=== PATIENT | male | born 1985 | race Caucasian/White ===

== ENCOUNTER 2016-12-22 05:38 | Outpatient (CLI) | payer MEDICARE, MEDICAID ==
[~2016-12-22 05:38] MED LIST: ACET325T49 PO; CARB300C2 PO; CLON0.5T3 PO; DIVA500T PO; DOCU100T2 PO; IBUP200T48 PO; LORA10TA7 PO; PROP120C36 PO; PROP20TA23 PO; QTP200T PO; QUET200T2 PO; QUET300T3 PO; QUET50TA49 PO; [UNRECOGNIZED DRUG - CODE] PO
--- OUTSIDE RECORDS SUMMARY | 2016-12-22 05:44 | XMS REPORT | Clinical Summary ---
Author Author Admin, ABBE Organization 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 Active Jan Renteria MD Unspecified disturbance of conduct ACUTE PHARYNGITIS 462 Resolved Jan Renteria MD Acute pharyngitis PICA 307.52 Resolved Jan Renteria MD Pica Seizure disorder 780.39 Active Jan Renteria MD Other convulsions Leukopenia, chronic 288.50 Active Jan Renteria MD Leukocytopenia, unspecified Health screening V70.0 Active Jan Renteria MD Routine general medical examination at a health care facility NOCTURNAL ENURESIS 788.36 Resolved Jan Renteria MD Nocturnal enuresis ELEVATED BP 796.2 Inactive Jan Renteria MD Elevated blood pressure reading without diagnosis of hypertension Elevated blood pressure without diagnosis of hypertension 796.2 Active Jan Renteria MD Elevated blood pressure reading without diagnosis of hypertension Pica 307.52 Active Jan Renteria MD Pica Impulse control disorder 312.30 Active Qiana FELIX Impulse control disorder, unspecified ACUTE PHARYNGITIS ICD-462 Inactive Jan Renteria MD PICA ICD-307.52 Inactive Jan Renteria MD NOCTURNAL ENURESIS ICD-788.36 Inactive Jan Renteria MD Medication List Medication Instructions Start Date Stop Date Generic Name NDC Status Provider Patient Instruction PROPRANOLOL HCL CR 60 MG [id number] 2 po daily PROPRANOLOL HCL 66365267129 Active Jan Renteria MD Active CLONAZEPAM 0.5 MG TABS 1 tablet by mouth 3 times daily CLONAZEPAM 06881441887 Active Jan Renteria MD Active COLACE 100 MG CAP 1 po qd DOCUSATE SODIUM 04001757783 Active Radha Heath MD PhD Active DIVALPROEX SODIUM 500 MG TBEC 1 po TID DIVALPROEX SODIUM 31287400089 Active Jan Renteria MD Active ANTACID EXTRA STRENGTH 750 MG CHEW One to Two Tablets Every 6.5 hours as needed for heartburn CALCIUM CARBONATE ANTACID 74452704023 Active Jan Renteria MD Active HYDROCORTISONE ACETATE 1 % CREA apply sparingly to affected areas twice a day as needed. HYDROCORTISONE ACETATE 86214355725 Active Qiana FELIX Active CEFTIN 500 MG TAB 1 po bid 10 day CEFUROXIME AXETIL 18385069741 No Longer Active Jan Renteria MD Active SEROQUEL XR 300 MG [id number] 1 po every evening QUETIAPINE FUMARATE 36682253152 Active Chintan Zamarripa DO Active SEROQUEL XR 200 MG [id number] 1 po daily QUETIAPINE FUMARATE 66251036833 Active Chintan Zamarripa DO Active GNP IBUPROFEN 200 MG TABS 3 tabs every 8 hours with food as needed IBUPROFEN 44368192114 Active Jan Renteria MD Active CARBAMAZEPINE 300 MG [id number] 2 caps BID CARBAMAZEPINE 79695640828 Active Chintan Zamarripa DO Active ACETAMINOPHEN 325 MG TABS 2 tabs every 6 hours prn fever/pain ACETAMINOPHEN 83649142637 Active Jan Renteria MD Active LORATADINE 10 MG TABS 1 tablet by mouth daily PRN Congestion LORATADINE 83346934726 Active Jan Renteria MD Active CEFTIN 500 MG TAB 1 po bid 10 day CEFTIN 500 MG TAB 234881 CEFUROXIME AXETIL Inactive Vital Signs Date Name Value Unit Range Description blood pressure, diastolic - 8462-4 72 mm[Hg] BP lanza blood pressure, systolic - 8480-6 121 mm[Hg] BP sys pulse rate E&M - 8867-4 68 /min Heart rate temperature E&M 98.1 [degF] Body temperature weight E&M - 3141-9 159 [lb_av] Weight Measured blood pressure, diastolic - 8462-4 83 mm[Hg] BP lanza blood pressure, systolic - 8480-6 121 mm[Hg] BP sys pulse rate E&M - 8867-4 77 /min Heart rate temperature E&M 97.2 [degF] Body temperature weight E&M - 3141-9 166.4 [lb_av] Weight Measured blood pressure, diastolic - 8462-4 83 mm[Hg] BP lanza blood pressure, systolic - 8480-6 122 mm[Hg] BP sys pulse rate E&M - 8867-4 80 /min Heart rate temperature E&M 97.6 [degF] Body temperature weight E&M - 3141-9 154.0 [lb_av] Weight Measured blood pressure, diastolic - 8462-4 81 mm[Hg] BP lanza blood pressure, systolic - 8480-6 136 mm[Hg] BP sys pulse rate E&M - 8867-4 67 /min Heart rate temperature E&M 96.0 [degF] Body temperature weight E&M - 3141-9 152 [lb_av] Weight Measured Diagnostic Results Date Name Value Unit Range Description Lab Report: CARBAMAZEPINE, TOTAL, VALPROIC ACID - Toxicology carbamazepine level, serum 9.6 ug/mL 4.0-12.0 valproic acid, serum 90.3 ug/mL 50.0-100.0 Lab Report: CBC W/DIFF, Comp. Metabolic Panel - Chemistry sodium, serum 133 mmol/L 909-844 9816/12/08 potassium, serum 4.7 mmol/L 3.5-5.2 chloride, serum 97 mmol/L 98-107 carbon dioxide, venous blood 31.6 mmol/L 21.0-32.0 blood glucose 93 mg/dL 65-110 urea nitrogen, blood 10 mg/dL 7-18 creatinine, serum 0.90 mg/dL 0.60-1.30 alanine aminotransferase (SGPT), serum 18 U/L - aspartate aminotransferase (SGOT), serum 13 U/L 15-37 calcium, serum 9.8 mg/dL 8.5-10.1 bilirubin, serum, total 0.30 mg/dL 0.00-1.00 sodium, serum 131 mmol/L 988-014 9841/10/20 potassium, serum 4.7 mmol/L 3.5-5.2 chloride, serum 94 mmol/L 98-107 carbon dioxide, venous blood 34.2 mmol/L 21.0-32.0 blood glucose 90 mg/dL 65-110 urea nitrogen, blood 6 mg/dL 7-18 creatinine, serum 0.80 mg/dL 0.60-1.30 alanine aminotransferase (SGPT), serum 19 U/L -78 aspartate aminotransferase (SGOT), serum 14 U/L 15-37 alkaline phosphatase, serum 66 U/L 50-136 calcium, serum 9.8 mg/dL 8.5-10.1 bilirubin, serum, total 0.30 mg/dL 0.00-1.00 Lab Report: CBC W/DIFF, Comp. Metabolic Panel - Hematology leukocyte count, blood 3.4 10^3/MM^3 10*3/mm3 4.6-10.2 neutrophils as percent of blood leukocytes 43.2 % 42.2-75.2 monocytes as percent of blood leukocytes 12.9 % 1.7-9.3 lymphocytes as percent of blood leukocytes 42.7 % 20.5-51.1 erythrocyte (RBC) count 4.40 10^6/MM^3 10*6/mm3 4.69-6.13 hemoglobin, blood 13.8 g/dL 13.5-17.5 hematocrit, blood 40.8 % 41.0-53.0 mean corpuscular volume, RBC 93 fL 80-97 mean corpuscular hemoglobin, RBC 31.4 pg 27.0-31.2 mean corpuscular hemoglobin concentration, RBC 33.9 G/DL % 31.8- 35.4 red blood cell distribution width 14.0 % 11.6-14.8 platelet count 254 10^3/MM^3 10*3/mm3 360-125 3586/12/08 leukocyte count, blood 2.5 10^3/MM^3 10*3/mm3 4.6-10.2 neutrophils as percent of blood leukocytes 51.6 % 42.2-75.2 monocytes as percent of blood leukocytes 8.7 % 1.7-9.3 lymphocytes as percent of blood leukocytes 36.8 % 20.5-51.1 erythrocyte (RBC) count 4.46 10^6/MM^3 10*6/mm3 4.69-6.13 hemoglobin, blood 13.9 g/dL 13.5-17.5 hematocrit, blood 41.4 % 41.0-53.0 mean corpuscular volume, RBC 93 fL 80-97 mean corpuscular hemoglobin, RBC 31.1 pg 27.0-31.2 mean corpuscular hemoglobin concentration, RBC 33.5 G/DL % 31.8- 35.4 red blood cell distribution width 14.9 % 11.6-14.8 platelet count 238 10^3/MM^3 10*3/mm3 142-424 Lab Report: CBC W/DIFF, Comp. Metabolic Panel, Lipid Panel - Chemistry sodium, serum 133 mmol/L 318-934 5302/05/04 potassium, serum 4.5 mmol/L 3.5-5.2 chloride, serum 98 mmol/L 98-107 carbon dioxide, venous blood 28.5 mmol/L 21.0-32.0 blood glucose 91 mg/dL 65-110 urea nitrogen, blood 13 mg/dL 7-18 creatinine, serum 0.80 mg/dL 0.60-1.30 alanine aminotransferase (SGPT), serum 32 U/L 12-78 aspartate aminotransferase (SGOT), serum 17 U/L 15-37 calcium, serum 9.1 mg/dL 8.5-10.1 bilirubin, serum, total 0.30 mg/dL 0.00-1.00 cholesterol, serum 195 mg/dL 580-780 3433/05/04 triglyceride, serum, fasting 85 mg/dL 30-200 HDL cholesterol, serum 71 mg/dL 32-96 LDL cholesterol, serum 107 mg/dL 0-130 Lab Report: CBC W/DIFF, Comp. Metabolic Panel, Lipid Panel - Hematology leukocyte count, blood 4.0 10^3/MM^3 10*3/mm3 4.6-10.2 neutrophils as percent of blood leukocytes 73.5 % 42.2-75.2 monocytes as percent of blood leukocytes 9.0 % 1.7-9.3 lymphocytes as percent of blood leukocytes 14.8 % 20.5-51.1 erythrocyte (RBC) count 4.60 10^6/MM^3 10*6/mm3 4.69-6.13 hemoglobin, blood 14.1 g/dL 13.5-17.5 hematocrit, blood 41.7 % 41.0-53.0 mean corpuscular volume, RBC 91 fL 80-97 mean corpuscular hemoglobin, RBC 30.7 pg 27.0-31.2 mean corpuscular hemoglobin concentration, RBC 33.9 G/DL % 31.8- 35.4 red blood cell distribution width 13.8 % 11.6-14.8 platelet count 286 10^3/MM^3 10*3/mm3 142-424 Lab Report: CBC, Comp. Metabolic Panel, Lipid Panel - Chemistry sodium, serum 129 mmol/L 139-931 1367/06/29 potassium, serum 4.5 mmol/L 3.5-5.2 chloride, serum 93 mmol/L 98-107 carbon dioxide, venous blood 29.2 mmol/L 21.0-32.0 blood glucose 89 mg/dL 65-110 urea nitrogen, blood 8 mg/dL 7-18 creatinine, serum 0.60 mg/dL 0.60-1.30 alanine aminotransferase (SGPT), serum 28 U/L 12-78 aspartate aminotransferase (SGOT), serum 17 U/L 15-37 calcium, serum 8.9 mg/dL 8.5-10.1 bilirubin, serum, total 0.30 mg/dL 0.00-1.00 cholesterol, serum 212 mg/dL 887-846 2327/06/29 triglyceride, serum, fasting 99 mg/dL 30-200 HDL cholesterol, serum 45 mg/dL 32-96 LDL cholesterol, serum 147 mg/dL 0-130 Lab Report: CBC, Comp. Metabolic Panel, Lipid Panel - Hematology leukocyte count, blood 3.4 10^3/MM^3 10*3/mm3 4.6-10.2 erythrocyte (RBC) count 4.57 10^6/MM^3 10*6/mm3 4.69-6.13 hemoglobin, blood 13.8 g/dL 13.5-17.5 hematocrit, blood 40.0 % 41.0-53.0 mean corpuscular volume, RBC 88 fL 80-97 mean corpuscular hemoglobin, RBC 30.2 pg 27.0-31.2 mean corpuscular hemoglobin concentration, RBC 34.4 G/DL % 31.8- 35.4 red blood cell distribution width 13.4 % 11.6-14.8 platelet count 310 10^3/MM^3 10*3/mm3 142-424 Lab Report: VALPROIC ACID, CARBAMAZEPINE, TOTAL - Toxicology valproic acid, serum 46.6 ug/mL 50.0-100.0 carbamazepine level, serum 8.3 ug/mL 4.0-12.0 Lab Report: VITAMIN B12/FOLATE, SERUM PANE, IRON AND TOTAL IRON BINDING ... - Toxicology Lead Serum <3 mcg/dL ug/dL <10 Encounters Code Encounter Date Provider Facility CPT-51734 Level 4 Est. Patient 13:56:20 CDT Jan Renteria MD [facility] CPT-94865 Level 3 Est. Patient 10:17:04 CENTER MEDICAL DIRECTOR Jan Renteria MD [facility] CPT-33595 Level 3 Est. Patient 09:13:47 CENTER MEDICAL DIRECTOR Jan Renteria MD [facility] CPT-86058 Level 4 Est. Patient 10:50:58 CDT Jan Renteria MD [facility] CPT-38425 Level 4 Est. Patient 09:31:29 CDT Jan Renteria MD [facility] CPT-13841 Level 3 Est. Patient 09:37:08 CDT Jan Renteria MD [facility] CPT-81880 Level 3 Est. Patient 14:56:51 CDT Jan Renteria MD [facility] CPT-30670 Level 3 Est. Patient 18:39:11 CDT Chintan Zamarripa DO [facility] Procedures Code Procedure Name Date Entry Date Standard Description CPT-19486 Venipuncture Draw Fee 08:18:47 CDT CPT-38576 Abd single AP View 10:20:56 CENTER MEDICAL DIRECTOR CPT-19340 Abd single AP View 08:22:35 CENTER MEDICAL DIRECTOR CPT-45306 Abd single AP View 08:12:25 CENTER MEDICAL DIRECTOR CPT-64063 Abd single AP View 14:40:30 CENTER MEDICAL DIRECTOR CPT-38673 Abd compl w upright 09:20:36 CENTER MEDICAL DIRECTOR CPT-82852 Venipuncture Draw Fee 08:27:50 CDT CPT-31371 Venipuncture Draw Fee 08:08:26 CENTER MEDICAL DIRECTOR
[2016-12-22] MEDS ORDERED: PSEU120T18 PO (10:58)
[2016-12-22] MEDS ORDERED: OMEP20CA12 PO (10:58)
[2016-12-22] MEDS ORDERED: FLUT9.9S NSEACH (10:58)
[2016-12-22] MEDS ORDERED: OLAN20TA16 PO (10:58)
== END 2016-12-22 11:00 ==
LOC: PREOP 05:38
PROVIDERS: ATTEND Dentist General Practice
DX: Z01.818 Encounter for other preprocedural examination (principal); K02.9 Dental caries, unspecified

== ENCOUNTER 2016-12-29 10:56 | Day surgery (SDC) | payer MEDICARE, MEDICAID ==
--- NOTE | 2016-12-23 07:28 | HISTORY AND PHYSICAL ---
DICTATING PHYSICIAN: Dr. Tobin DATE OF ADMISSION: 12/29/[address] Baxter. History by [facility] coordinated, to have teeth surgery by Dr. Baxter the last one was over a year ago and did fine. MEDICATIONS NOW ON: 1. Tylenol. 2. Antacid chewable. 3. Tegretol 300 mg 2 capsules b.i.d. 4. Depakote 1500 mg. 5. Docusate sodium 100 mg. 6. Flonase. 7. Motrin. 8. Loratadine. 9. Nystatin. 10. Zyprexa 20 mg. 11. Omeprazole 20 mg. 12. Propranolol 120 mg. 13. Sudafed 120 mg. 14. Triamcinolone cream. The patient is mentally challenged and unable to give a history. PREVIOUS SURGERIES: Teeth. ALLERGIC TO MEDICATIONS: Denies. EYES, EARS, NOSE AND THROAT: Wears glasses. No history of problems. HEART: No history of heart problems or chest pain. LUNGS: No coughing, congestion. Appetite okay. KIDNEYS: Urinating good. PHYSICAL EXAMINATION: The patient is a white male, well-nourished, well-developed, in no acute respiratory distress at rest. VITAL SIGNS: Blood pressure 120/90, pulse 76. EARS: Not inflamed. EYES: No conjunctivitis or icterus. THROAT: Not inflamed. NECK: Thyroid not enlarged. No abnormal cervical lymphadenopathy noted. HEART: Regular rate and rhythm. LUNGS: Clear to auscultation. ABDOMEN: Soft. Liver and spleen nonpalpable. PLAN: The patient okay to have surgery. We will be on standby if has any problems. Job ID: [id number] Dictated Date: 12/22/2016 11:38:00 Bacteriology Technician Date: 12/22/2016 13:38:33/eloina
[~2016-12-29] VITALS: Ht 157.5 cm; Wt 83.0 kg
[~2016-12-29 10:56] MED LIST changes: +FLUT9.9S NSEACH; +OLAN20TA16 PO; +OMEP20CA12 PO; +PSEU120T18 PO
[2016-12-29] MEDS ORDERED: FAMOTIDINE 20MG/2ML IV (PEPCID) ONE (12:05)
[2016-12-29] MEDS ORDERED: MIDAZOLAM 2 MG/2 ML (VERSED) VIAL ONE (12:05)
[2016-12-29] MEDS ORDERED: ONDANSETRON 4 MG/2 ML (SDV) Z0FRAN ONE (12:05)
[2016-12-29] MEDS ORDERED: SEVOFLURANE (ULTANE) 15 ML INHAL SOLN ONE ×9 (12:06→14:55)
[2016-12-29] MEDS ORDERED: proPOfol 200 MG/20 ML (DIPRIVAN) VIAL IV ONE (12:06)
[2016-12-29] MEDS ORDERED: fentaNYL INJECTION 100 MCG/2 ML AMP ONE (12:06)
[2016-12-29] MEDS ORDERED: ROCURONIUM 50 MG/5 ML (ZEMURON) VIAL IV ONE (12:06)
[2016-12-29] MEDS ORDERED: LIDOCAINE PF 2% 10 ML (XYLOCAINE) AMP ONE (12:06)
[2016-12-29] MEDS ORDERED: LACTATED RINGERS 1,000 ML IV ONE ×2 (12:06→13:23)
[2016-12-29] MEDS ORDERED: LIDOCAINE JELLY 2% (XYLOCAINE) 5 ML TUBE ONE (12:10)
[2016-12-29] MEDS ORDERED: PHENYLEPHRINE 0.25% NASAL SPR (NEO-SYNEPHRINE) 15 ML NS ONE ×3 (12:23→13:45)
--- NOTE | 2016-12-29 12:25 | Progress Note-Pre Operative ---
Pre-Operative Progress Note H&P Reviewed The H&P was reviewed, patient examined and no changes noted. Date H&P Reviewed: Dec 29, 2016 Time H&P Reviewed: 12:24 Pre-Operative Diagnosis: dental caries NIEVES WATERS DDS Dec 29, 2016 12:25 pm
[2016-12-29] MEDS ORDERED: APAP 325 MG/10.15 ML LIQ (TYLENOL) UDC PO PRN (12:30)
[2016-12-29] MEDS ORDERED: APAP 325 MG/10.15 ML LIQ (TYLENOL) UDC PO SCH (12:45)
[2016-12-29] MEDS ORDERED: FAMOTIDINE 20MG/2ML IV (PEPCID) IV ONE (13:45)
[2016-12-29] MEDS ORDERED: LACTATED RINGERS 1,000 ML IV PRN (13:45)
[2016-12-29] MEDS ORDERED: MIDAZOLAM 2 MG/2 ML (VERSED) VIAL IV ONE (13:45)
[2016-12-29] MEDS ORDERED: ONDANSETRON 4 MG/2 ML (SDV) Z0FRAN IV ONE (13:45)
[2016-12-29] MEDS ORDERED: SUCCINYLCHOLINE INJ 100 MG/5 ML SYR ONE (15:14)
--- NOTE | 2016-12-29 15:21 | Progress Note-Post Operative ---
Post-Operative Progess Note Pre-Operative Diagnosis dental caries Post-Operative Diagnosis same Post-Op Procedure Note Date of Procedure: Dec 29, 2016 Name of Procedure: repair of carious teeth utilizing SSCrs, glass ionomer cement and Zirconia crowns and bridges NIEVES WATERS DDS Dec 29, 2016 3:21 pm
[2016-12-29 16:00] VITALS: BP 139/94
[2016-12-29 16:30] VITALS: BP 145/104
[2016-12-29 16:45] VITALS: BP 145/104
--- NOTE | 2016-12-30 14:40 | OPERATIVE REPORT ---
PROCEDURE PHYSICIAN: NIEVES WATERS DATE OF PROCEDURE: 12/29/2016 PREOPERATIVE DIAGNOSIS: Dental caries. POSTOPERATIVE DIAGNOSIS: Dental caries. OPERATION PERFORMED: Repair of numerous teeth utilizing stainless steel crowns, Zirconia crowns and bridges, glass ionomer cement and direct pulp therapy. PROCEDURE: The patient was treated on an outpatient basis and following proper sedation, he was taken to the operating room placed in the supine position upon the table. Anesthesia was induced, nasotracheal intubation accomplished and general anesthesia administered. A throat pack consisting of one, wet, 4 x 4 gauze sponge was placed in the oropharynx and maintained at all times throughout the procedure. Mouth opening was maintained at all times with simple digital pressure. No mechanical retractors of any kind were ever utilized. Caries was removed from teeth numbers 6 through 12, as well as 20, 21, 22 and 30 and a direct pulp cap therapy was utilized on tooth number 22 and then was repaired with glass ionomer cement. Stainless steel crowns were applied to teeth numbers 20, 21 and 30. Foundations were placed and teeth numbers 8, 11 and 30 and subsequently teeth numbers 6, 9, 11 and 12 were all prepared to receive Zirconia crowns. The patient tolerated this procedure quite nicely and following a thorough debridement of the oral cavity with a copious flow of water, adequate suction and compressed air, the throat pack was removed. The patient was extubated and taken to recovery in quite satisfactory condition. Job ID: [id number] Dictated Date: 12/30/2016 08:12:07 Advanced Manufacturing Vice President Date: 12/30/2016 14:34:08 / eloina LOYA
== END 2016-12-29 16:45 | disposition home or self-care (01) ==
LOC: SDC 10:56
PROVIDERS: ATTEND Dentist General Practice
DX: K02.9 Dental caries, unspecified (principal); F79 Unspecified intellectual disabilities
CPT/HCPCS: 87081

== ENCOUNTER 2020-07-09 05:35 | Outpatient (RCR) | payer MEDICARE, MEDICAID ==
[~2020-07-09 05:35] MED LIST changes: -OLAN20TA16 PO; +OLAN20TA34 PO; -OMEP20CA12 PO; +OMEP20CA18 PO; -PSEU120T18 PO; +[UNRECOGNIZED DRUG - CODE] PO
[2020-07-10] MEDS ORDERED: INDLA120 PO (11:29)
[2020-07-10] MEDS ORDERED: DOCU100C37 PO (11:29)
[2020-07-10] MEDS ORDERED: DIVA-76 PO ×2 (11:29)
[2020-07-10] MEDS ORDERED: CARB300C9 PO ×2 (11:29)
[2020-07-10] MEDS ORDERED: PRAV20TA3 PO (11:29)
== END 2020-07-10 12:05 | disposition home or self-care (01) ==
LOC: PREOP 05:35
PROVIDERS: ATTEND Dentist General Practice
DX: Z01.818 Encounter for other preprocedural examination (principal); K02.9 Dental caries, unspecified

== ENCOUNTER 2020-07-16 10:39 | Day surgery (SDC) | payer MEDICARE, MEDICAID ==
[~2020-07-16] VITALS: Ht 154.9 cm; Wt 88.3 kg
[~2020-07-16 10:39] MED LIST changes: +CARB300C9 PO; +DIVA-76 PO; +DOCU100C37 PO; +INDLA120 PO; +PHENYLEPHRINE 0.25% NASAL SPR (NEO-SYNEPHRINE) 15 ML NS ONE; +PRAV20TA3 PO
[2020-07-16] MEDS: LACTATED RINGERS 1,000 ML IV PRN ×2 (11:30→13:37)
[2020-07-16 11:36] VITALS: BP 153/104
[2020-07-16] MEDS ORDERED: proPOfol 200 MG/20 ML (DIPRIVAN) VIAL IV ONE (11:59)
[2020-07-16] MEDS ORDERED: fentaNYL INJECTION 100 MCG/2 ML AMP ONE (11:59)
[2020-07-16] MEDS ORDERED: MIDAZOLAM 2 MG/2 ML (VERSED) VIAL ONE (12:00)
[2020-07-16] MEDS ORDERED: LIDOCAINE PF 2% 5 ML (XYLOCAINE) VIAL ONE (12:06)
[2020-07-16] MEDS ORDERED: LIDOCAINE JELLY 2% 6 ML SYRINGE ONE (12:06)
[2020-07-16] MEDS ORDERED: ONDANSETRON 4 MG/2 ML (SDV) Z0FRAN ONE ×2 (12:06→12:30)
[2020-07-16] MEDS ORDERED: SEVOFLURANE (ULTANE) 15 ML INHAL SOLN ONE ×5 (12:06→14:02)
[2020-07-16] MEDS ORDERED: FAMOTIDINE 20MG/2ML IV (PEPCID) ONE (12:30)
[2020-07-16] MEDS ORDERED: FAMOTIDINE 20MG/2ML IV (PEPCID) IVP ONE (12:45)
[2020-07-16] MEDS ORDERED: ONDANSETRON 4 MG/2 ML (SDV) Z0FRAN IVP ONE (12:45)
[2020-07-16] MEDS ORDERED: ROCURONIUM 10 MG/ML 5 ML SYRINGE IV ONE (13:16)
[2020-07-16] MEDS ORDERED: NEOSTIGMINE 3 MG/3 ML VIAL ONE (13:16)
[2020-07-16] MEDS ORDERED: GLYCOPYRROLATE 0.2 MG/ML (ROBINUL) 2 ML VIAL ONE ×3 (13:16→14:13)
[2020-07-16 14:30] VITALS: BP 115/81
--- NOTE | 2020-07-16 14:33 | Anesthesia-General Post-Op ---
General Patient Condition Mental Status/LOC: Same as Preop Cardiovascular: Satisfactory Nausea/Vomiting: Absent Respiratory: Satisfactory Pain: Controlled Complications: Absent Post Op Complications Complications None Follow Up Care/Instructions Patient Instructions None needed. Anesthesia/Patient Condition Patient Condition Patient is doing well, no complaints, stable vital signs, no apparent adverse anesthesia problems. No complications reported per nursing. DAMON BURKETT CRNA Jul 16, 2020 14:33
[2020-07-16 14:40] VITALS: BP 131/102
[2020-07-16] MEDS ORDERED: fentaNYL INJECTION 100 MCG/2 ML AMP IVP ONE (14:45)
[2020-07-16] MEDS ORDERED: MEPERIDINE (DEMEROL) INJ 50 MG/ML IVP ONE (14:45)
[2020-07-16] MEDS ORDERED: ONDANSETRON 4 MG/2 ML (SDV) Z0FRAN IVP PRN (14:45)
[2020-07-16 14:55] VITALS: BP 144/95
[2020-07-16 15:25] VITALS: BP 135/92
[2020-07-16 15:40] VITALS: BP 135/92
--- NOTE | 2020-07-17 20:49 | OPERATIVE REPORT ---
DATE OF SERVICE: 07/16/2020 PREOPERATIVE DIAGNOSIS: Dental caries. POSTOPERATIVE DIAGNOSIS: Dental caries. OPERATION PERFORMED: Repair of numerous carious teeth utilizing stainless steel crowns, composite resin and a complete scaling of the subgingival areas. The patient was treated on an outpatient basis and following suitable premedication taken to the operating room and placed in the supine position upon the table. Anesthesia was induced. Nasotracheal intubation accomplished and general anesthesia administered. A throat pack consisting of one wet 4 x 4 gauze sponge was placed in the oropharynx and maintained in place throughout the procedure. Mouth opening was maintained at all times with simple digital pressure. No mechanical retractors of any kind were utilized. Caries was removed from teeth numbers 18 and 31 and stainless-steel crowns then cemented with glass ionomer cement. Caries was removed from teeth numbers 19, 22, 23 and 26 and then repaired with glass ionomer cement and composite resin. The entire mouth was then scaled and irrigated throughout all four quadrants. The patient tolerated this procedure quite nicely and following a thorough debridement of the oral cavity with a copious flow of water, adequate suction and compressed air, the throat pack was removed. The patient was taken to the recovery in quite satisfactory condition. Job ID: [id number] DocumentID: [id number] Dictated Date: 07/17/2020 06:41:05 It Telecom Technician Date: 07/17/2020 07:37:07 Dictated By: NIEVES WATERS DDS
== END 2020-07-16 15:40 | disposition home or self-care (01) ==
LOC: SDC 10:39
PROVIDERS: ATTEND Dentist General Practice
DX: K02.9 Dental caries, unspecified (principal); Z11.2 Encounter for screening for other bacterial diseases; E78.5 Hyperlipidemia, unspecified; G40.909 Epilepsy, unspecified, not intractable, without status epilepticus; K21.9 Gastro-esophageal reflux disease without esophagitis; G80.9 Cerebral palsy, unspecified; J30.9 Allergic rhinitis, unspecified; F79 Unspecified intellectual disabilities; Z79.899 Other long term (current) drug therapy
CPT/HCPCS: 87081

== ENCOUNTER → 2021-08-12 | Outpatient (CLI) | payer MEDICARE, MEDICAID ==
[~2021-08-12] MED LIST changes: -PHENYLEPHRINE 0.25% NASAL SPR (NEO-SYNEPHRINE) 15 ML NS ONE
== END | disposition home or self-care (01) ==
LOC: PREOP 05:30
PROVIDERS: ATTEND Dentist General Practice
DX: Z01.818 Encounter for other preprocedural examination (principal)

== ENCOUNTER 2021-08-26 10:48 | Day surgery (SDC) | payer MEDICARE, MEDICAID ==
[~2021-08-26] VITALS: Ht 154.9 cm; Wt 89.5 kg
[2021-08-26 10:49] VITALS: BP 143/64
[2021-08-26] MEDS ORDERED: LACTATED RINGERS 1,000 ML IV PRN (11:15)
[2021-08-26] MEDS ORDERED: PHENYLEPHRINE 0.25% NASAL SPR (NEO-SYNEPHRINE) 15 ML NS ONE (11:15)
[2021-08-26] MEDS ORDERED: MIDAZOLAM 2 MG/2 ML (VERSED) VIAL ONE ×2 (12:04→12:15)
[2021-08-26] MEDS ORDERED: ROCURONIUM 10 MG/ML 5 ML SYRINGE IV ONE (12:15)
[2021-08-26] MEDS ORDERED: ONDANSETRON 4 MG/2 ML (SDV) Z0FRAN ONE (12:15)
[2021-08-26] MEDS ORDERED: fentaNYL INJ 100 MCG/2 ML AMP ONE (12:15)
[2021-08-26] MEDS ORDERED: MIDAZOLAM 2 MG/2 ML (VERSED) VIAL IVP ONE (12:15)
[2021-08-26] MEDS ORDERED: LIDOCAINE PF 2% 5 ML (XYLOCAINE) VIAL ONE (12:15)
[2021-08-26] MEDS ORDERED: proPOfol 200 MG/20 ML (DIPRIVAN) VIAL IV ONE (12:15)
[2021-08-26 14:45] VITALS: BP 126/81
[2021-08-26 14:50] VITALS: BP 106/86
[2021-08-26] MEDS ORDERED: RT-ALBUTEROL SULF 2.5 MG/3 ML PRE-MIX VIAL ONE (14:58)
[2021-08-26 15:00] VITALS: BP 112/88
[2021-08-26] MEDS ORDERED: ONDANSETRON 4 MG/2 ML (SDV) Z0FRAN IVP PRN (15:00)
[2021-08-26] MEDS ORDERED: morphine INJ 10 MG/ML 1ML (SYR OR VIAL) IVP ONE (15:00)
[2021-08-26] MEDS ORDERED: RT-ALBUTEROL SULF 2.5 MG/3 ML PRE-MIX VIAL INH ONE (15:00)
[2021-08-26 15:38] VITALS: BP 132/84
[2021-08-26 15:40] VITALS: BP 132/84
--- NOTE | 2021-08-26 16:28 | Anesthesia-General Post-Op ---
General Patient Condition Mental Status/LOC: Same as Preop Cardiovascular: Satisfactory Nausea/Vomiting: Absent Respiratory: Satisfactory Pain: Controlled Complications: Absent Post Op Complications Complications None Follow Up Care/Instructions Patient Instructions None needed. Anesthesia/Patient Condition Patient Condition Patient is doing well, no complaints, stable vital signs, no apparent adverse anesthesia problems. No complications reported per nursing. HORACIO LEIVA CRNA Aug 26, 2021 16:28
--- NOTE | 2021-08-28 08:14 | OPERATIVE REPORT ---
DATE OF SERVICE: PREOPERATIVE DIAGNOSIS: Dental caries. POSTOPERATIVE DIAGNOSIS: Dental caries. OPERATION PERFORMED: Root canal therapy, crown preparation, bridge preparation and foundation placement. DESCRIPTION OF PROCEDURE: The patient was treated on an outpatient basis and following suitable premedication, was taken to the operating room and placed in the supine position upon the table. Anesthesia was induced. Nasotracheal intubation accomplished and general anesthesia was administered. A throat pack consisting of one wet 4 x 4 gauze sponge was placed in the oropharynx and maintained in place throughout the procedure. Mouth opening was maintained at all times with simple digital pressure. No mechanical retractors of any kind were utilized. Caries was removed and the pulp as well from tooth #11. Subsequently, the root canal therapy was completed on that tooth. Post-implant foundation was then placed in that tooth as well as in tooth #12. The teeth were then prepared to receive a bridge extending from teeth #9 through 12, 13 being cantilevered off the distal end. The patient tolerated this procedure quite nicely and following a thorough debridement of the oral cavity with a copious flow of water, adequate suction and compressed air, the throat pack was removed. The patient was extubated and taken to recovery in quite satisfactory condition. Job ID: [id number] DocumentID: [id number] Dictated Date: 08/28/2021 07:33:35 Knitter Mechanic Date: 08/28/2021 08:13:35 Dictated By: NIEVES WATERS DDS
== END 2021-08-26 15:38 | disposition home or self-care (01) ==
LOC: SDC 10:48
PROVIDERS: ATTEND Dentist General Practice
DX: K02.9 Dental caries, unspecified (principal); K21.9 Gastro-esophageal reflux disease without esophagitis; L25.9 Unspecified contact dermatitis, unspecified cause; E78.5 Hyperlipidemia, unspecified; G80.9 Cerebral palsy, unspecified; G40.909 Epilepsy, unspecified, not intractable, without status epilepticus; Z79.899 Other long term (current) drug therapy
CPT/HCPCS: 87081